=== PATIENT | female | born 1950 | race Caucasian/White ===

== ENCOUNTER 2017-06-01 10:03 | Day surgery (SDC) | payer BC ==
[2017-06-01] MEDS ORDERED: PROPOFOL 10 MG/ML VIAL IV ONE (10:04)
[2017-06-01] MEDS ORDERED: LIDOCAINE 2% MDV (20MG/ML) 20ML VIAL IV ONE (10:04)
--- NOTE | 2017-06-01 15:00 | Operative Note ---
DATE OF SURGERY: 06/01/2017 OPERATION: COLONOSCOPY to the cecum. INDICATION: History of adenomatous polyps. Last examination was 2012. She returns at this time for surveillance. ANESTHESIA: Intravenous sedation was administered by the department of anesthesiology and included Diprivan titrated to effect. PROCEDURE: Following informed consent from this alert individual including a discussion of the risks and benefits of the procedure and an opportunity for the patient to ask questions, the patient was in the left lateral decubitus position. A digital rectal examination was performed. No abnormalities were noted. Following this, the Olympus [id number] video colonoscope was inserted into the rectum without resistance. The rectal mucosa had a normal appearance with normal folds and distensibility. The sigmoid colon was cannulated and demonstrated diverticulosis. The colonoscope was then further advanced up through the bowel to the level of the cecum without much difficulty. Throughout the remainder of the bowel, the mucosa appeared normal, the folds were normal, and the bowel was fairly well distensible. The cecum was defined by noting the appendiceal orifice and ileocecal valve. Retroflexion in the cecum was endoscopically unremarkable. The colon preparation was good. From the base of the cecum, the colonoscope was then withdrawn. No polyps were noted upon withdrawal. Diverticulosis was again noted in the sigmoid colon. Retroflexion within the rectum revealed [id number] size internal hemorrhoids. The endoscope was straightened and removed. The patient tolerated the procedure well and was returned to the recovery area in stable condition. IMPRESSION: 1. Sigmoid diverticulosis. 2. [id number] size internal hemorrhoids. 3. No polyps noted. RECOMMENDATIONS: The patient was advised to have surveillance colonoscopy in 5 years' time or sooner if problems arise. Followup will otherwise be with Dr. Sacha Winters. As always, thank you for allowing me to participate in the care of your patient. CC: Dr. Carloz STERLING
== END 2017-06-01 11:57 | disposition home or self-care (01) ==
LOC: HOP 10:03
PROVIDERS: ATTEND Internal Medicine Gastroenterology
DX: Z12.11 Encounter for screening for malignant neoplasm of colon (principal); Z86.010 Personal history of colon polyps; K57.30 Diverticulosis of large intestine without perforation or abscess without bleeding; K64.8 Other hemorrhoids
CPT/HCPCS: 00810; G0105